=== PATIENT | male | born 1950 | race Caucasian/White ===

== ENCOUNTER 2016-06-06 10:05 | Day surgery (SDC) | payer OTHER ==
[~2016-06-06] VITALS: Ht 180.3 cm; Wt 87.4 kg
[~2016-06-06 10:05] MED LIST: ADVIL200 MG PO; ASPIRIN 32325 MG/TAB PO; ASPIRIN 81M81 MG/TA2 PO; BRILINTA90 MG PO; LIPITOR 40MG TA40 MG PO; LOPRESSOR 225 MG/TAB PO; NICODERM C21 MG/PATC TOP; NITROQUICK0.4 MG SL; NO HOME MEDICATIONS; PLAVIX 75MG TAB75 MG PO; PRILOSEC 20MG20 MG PO; SUPER EPA W/BO400 MG PO; VITAMIN D1000 IU PO; ZESTRIL2.5 MG PO
[2016-06-06 11:12] VITALS: BP 109/71; PULSE 68; TEMP 97.8
[2016-06-06] MEDS ORDERED: EFFIENT10 MG PO (11:20)
[2016-06-06] MEDS ORDERED: COREG 6.256.25 MG/TA PO (11:21)
[2016-06-06] MEDS ORDERED: NEURONTIN600 MG/TAB PO (11:22)
[2016-06-06 12:33] VITALS: BP 103/71; PULSE 82; TEMP 97.7
[2016-06-06 12:45] VITALS: BP 103/70; BP 85/40; PULSE 69
[2016-06-06 13:00] VITALS: BP 107/75; PULSE 71
[2016-06-06 14:13] VITALS: BP 104/65; PULSE 75
== END 2016-06-06 13:10 | disposition home or self-care (01) ==
LOC: SDCO 10:05
DX: Z12.11 Encounter for screening for malignant neoplasm of colon (principal); K63.5 Polyp of colon; I51.9 Heart disease, unspecified; Z86.010 Personal history of colon polyps; Z80.0 Family history of malignant neoplasm of digestive organs; K21.9 Gastro-esophageal reflux disease without esophagitis
CPT/HCPCS: J2704; J7030